=== PATIENT | female | born 1955 | race American Indian/Alaskan Native ===

== ENCOUNTER 2016-08-23 22:07 | Emergency (ER) | payer MEDICARE ==
[2016-08-23 22:25] VITALS: BP 192/80
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
== END 2016-08-24 03:26 | disposition home or self-care (01) ==
LOC: ED 22:07
DX: T23.201A Burn of second degree of right hand, unspecified site, initial encounter (principal); I10 Essential (primary) hypertension; I50.9 Heart failure, unspecified; E11.9 Type 2 diabetes mellitus without complications; F17.200 Nicotine dependence, unspecified, uncomplicated; Z79.82 Long term (current) use of aspirin; Z88.2 Allergy status to sulfonamides; X10.2XXA Contact with fats and cooking oils, initial encounter; Y93.G3 Activity, cooking and baking; Y92.89 Other specified places as the place of occurrence of the external cause; Y99.8 Other external cause status
CPT/HCPCS: 99282

== ENCOUNTER 2017-01-26 09:57 | Emergency (ER) | payer MEDICARE ==
[2017-01-26 10:46] VITALS: BP 146/64
[2017-01-26 11:22] LABS: Basophils % (Auto) 0.6 % (0.0-1.8); Eosinophils % (Auto) 2.4 % (0.0-4.3); Hematocrit 37.8 % (30.3-42.9); Mean Corpuscular HGB Conc 32 % (30-34); Mean Corpuscular Hemoglobin 26 pg (28-32); Mean Corpuscular Volume 82 fl (79-97); Red Blood Count 4.63 M/mm3 (3.65-5.03); Red Cell Distribution Width 17.8 % (13.2-15.2); White Blood Count 7.7 K/mm3 (4.5-11.0)
[2017-01-26 11:36] LABS: Platelet Count 220 K/mm3 (140-440)
--- NOTE | 2017-01-26 14:14 | Emergency Department Report ---
ED General Adult HPI - General Chief complaint: Vaginal Bleeding Stated complaint: VAGINAL BLEEDING Time Seen by Provider: 01/26/17 13:38 Source: patient, RN notes reviewed Mode of arrival: Ambulatory Limitations: No Limitations - History of Present Illness Initial comments: This is a 61-year-old female, she is previously unknown to this provider, has a past medical history of congestive heart failure, diabetes, obesity, arthritis Presents to the ER complaining of painless vaginal bleeding since last night. This is constant. It does not have exacerbating or relieving factors. Patient denies headache, neck pain, chest pain, abdominal pain, shortness of breath, irritative/obstructive urinary symptoms. Denies recent sexual activity, and denies insertion of foreign objects. Patient also complains of chronic atraumatic right-sided hip pain, consistent with prior episodes of arthritis, not especially new, worsening or different. This pain does not radiate anywhere. It increases with palpation, range of motion. -: Gradual Location: right, lower extremity Quality: aching Consistency: intermittent Improves with: rest Worsens with: movement Associated Symptoms: denies: confusion, chest pain, cough, diaphoresis, fever/ chills, headaches, loss of appetite, malaise, nausea/vomiting, rash, shortness of breath, syncope, weakness - Related Data Home Medications Medication Instructions Recorded Confirmed Last Taken Aspirin EC [Aspirin Enteric Coated 81 mg PO QDAY 01/08/13 09/18/13 09/18/13 08: 00 TAB] Atorvastatin [Lipitor] 40 mg PO DAILY 01/08/13 09/18/13 09/17/13 Ergocalciferol [Vitamin D2] 50,000 units PO QWEEK 01/08/13 09/18/13 09/11/13 Insulin Detemir [Levemir Flexpen] 20 unit SQ DAILY 01/08/13 09/18/13 09/16/13 Lisinopril [Zestril TAB] 40 mg PO QDAY 01/08/13 09/18/13 09/18/13 08:00 Metformin HCl [metFORMIN ER] 1,000 mg PO QDAY 01/08/13 09/18/13 09/16/13 Prazosin [Minipress] 5 mg PO BID 01/08/13 09/18/13 09/13/13 Triamter/Hctz 37.5-25 mg 1 tab PO QDAY 01/08/13 09/18/13 09/17/13 [Maxzide-25] Verapamil Sr [Calan SR] 240 mg PO BID 01/08/13 09/18/13 09/17/13 08:00 Clopidogrel [Plavix] 75 mg PO QDAY 01/17/13 09/18/13 09/18/13 08:00 Previous Rx's Medication Instructions Recorded Last Taken Type HYDROcodone/APAP 7.5-325 [[place] 1 each PO Q8HR PRN #12 tablet 08/24/16 Unknown Rx 7.5/325] Mupirocin [Bactroban 2%] 1 applic TP TID #1 tube 08/24/16 Unknown Rx Allergies Allergy/AdvReac Type Severity Reaction Status Date / Time Sulfa (Sulfonamide Allergy Rash Verified 01/26/17 10:46 Antibiotics) ED Review of Systems ROS: Stated complaint: VAGINAL BLEEDING Other details as noted in HPI Constitutional: denies: fever Eyes: denies: vision change ENT: denies: epistaxis Respiratory: denies: cough Cardiovascular: denies: chest pain Gastrointestinal: denies: abdominal pain, hematemesis, melena, hematochezia Genitourinary: other (vaginal bleeding). denies: urgency, dysuria Musculoskeletal: arthralgia, myalgia Skin: denies: lesions Neurological: denies: weakness Psychiatric: denies: anxiety ED Past Medical Hx - Past Medical History Previous Medical History?: Yes Hx Hypertension: Yes Hx Congestive Heart Failure: Yes Hx Diabetes: Yes Hx Asthma: No Hx COPD: No Additional medical history: overweight - Surgical History Additional Surgical History: stents in legs - Social History Smoking Status: Current Every Day Smoker Substance Use Type: None - Medications Home Medications: Home Medications Medication Instructions Recorded Confirmed Last Taken Type Aspirin EC [Aspirin Enteric Coated 81 mg PO QDAY 01/08/13 09/18/13 09/18/13 08: 00 History TAB] Atorvastatin [Lipitor] 40 mg PO DAILY 01/08/13 09/18/13 09/17/13 History Ergocalciferol [Vitamin D2] 50,000 units PO QWEEK 01/08/13 09/18/13 09/11/13 History Insulin Detemir [Levemir Flexpen] 20 unit SQ DAILY 01/08/13 09/18/13 09/16/13 History Lisinopril [Zestril TAB] 40 mg PO QDAY 01/08/13 09/18/13 09/18/13 08:00 History Metformin HCl [metFORMIN ER] 1,000 mg PO QDAY 01/08/13 09/18/13 09/16/13 History Prazosin [Minipress] 5 mg PO BID 01/08/13 09/18/13 09/13/13 History Triamter/Hctz 37.5-25 mg 1 tab PO QDAY 01/08/13 09/18/13 09/17/13 History [Maxzide-25] Verapamil Sr [Calan SR] 240 mg PO BID 01/08/13 09/18/13 09/17/13 08:00 History Clopidogrel [Plavix] 75 mg PO QDAY 01/17/13 09/18/13 09/18/13 08:00 History HYDROcodone/APAP 7.5-325 [[place] 1 each PO Q8HR PRN #12 tablet 08/24/16 Unknown Rx 7.5/325] Mupirocin [Bactroban 2%] 1 applic TP TID #1 tube 08/24/16 Unknown Rx ED Physical Exam - General Limitations: No Limitations General appearance: alert, in no apparent distress, obese - Head Head exam: Present: atraumatic, normocephalic - Eye Eye exam: Present: normal appearance - ENT ENT exam: Present: normal exam, normal orophraynx, mucous membranes moist, normal external ear exam - Neck Neck exam: Present: normal inspection, full ROM. Absent: tenderness, meningismus - Respiratory Respiratory exam: Present: normal lung sounds bilaterally. Absent: respiratory distress, wheezes, rales, rhonchi, stridor, chest wall tenderness, accessory muscle use, decreased breath sounds, prolonged expiratory - Cardiovascular Cardiovascular Exam: Present: regular rate, normal rhythm, normal heart sounds. Absent: bradycardia, tachycardia, irregular rhythm, systolic murmur, diastolic murmur, rubs, gallop - GI/Abdominal GI/Abdominal exam: Present: soft, normal bowel sounds. Absent: distended, tenderness, guarding, rebound, rigid - External exam: Present: normal external exam Speculum exam: Present: normal speculum exam, vaginal bleeding Bi-manual exam: Present: normal bi-manual exam, other (escorted by nursing Yesenia Lopes). Absent: cervical motion tendernes, adnexal tenderness, adnexal mass - Extremities Exam Extremities exam: Present: normal inspection, full ROM, normal capillary refill , pedal edema, other (the compartments are soft, there is lower extremity edema , the pelvis is stable, there is no long bony tenderness, there is no redness, pus, streaking over the right hip, there is full active and passive range of motion in the right hip, patient able to walk without difficulty). Absent: joint swelling, calf tenderness - Back Exam Back exam: Present: normal inspection, full ROM. Absent: CVA tenderness (L), muscle spasm, paraspinal tenderness, vertebral tenderness - Neurological Exam Neurological exam: Present: alert, oriented X3, normal gait, other (Extraocular movements intact. Tongue midline. No facial droop. Facial sensation intact to light touch in the V1, V2, V3 distribution bilaterally. 5 and 5 strength in 4 extremities.. Sensation is intact to light touch in 4 extremities.). Absent : motor sensory deficit - Psychiatric Psychiatric exam: Present: normal affect, normal mood - Skin Skin exam: Present: warm, dry, intact, normal color. Absent: rash ED Course Vital Signs 01/26/17 10:38 Temperature 97.9 F Pulse Rate 80 Respiratory 16 Rate Blood Pressure 146/64 O2 Sat by Pulse 100 Oximetry ED Medical Decision Making - Lab Data Result diagrams: 01/26/17 10:52 Vital Signs 01/26/17 10:38 Temperature 97.9 F Pulse Rate 80 Respiratory 16 Rate Blood Pressure 146/64 O2 Sat by Pulse 100 Oximetry Lab Results 01/26/17 01/26/17 01/26/17 Range/Units 10:52 10:52 14:15 WBC 7.7 (4.5-11.0) K/mm3 RBC 4.63 (3.65-5.03) M/mm3 Hgb 12.0 (10.1-14.3) gm/dl Hct 37.8 (30.3-42.9) % MCV 82 (79-97) fl MCH 26 L (28-32) pg MCHC 32 (30-34) % RDW 17.8 H (13.2-15.2) % Plt Count 220 (140-440) K/mm3 Lymph % (Auto) 42.2 H (13.4-35.0) % Edwards % (Auto) 8.3 H (0.0-7.3) % Eos % (Auto) 2.4 (0.0-4.3) % Baso % (Auto) 0.6 (0.0-1.8) % Lymph # 3.3 (1.2-5.4) K/mm3 Edwards # 0.6 (0.0-0.8) K/mm3 Eos # 0.2 (0.0-0.4) K/mm3 Baso # 0.0 (0.0-0.1) K/mm3 Seg Neutrophils % 46.5 (40.0-70.0) % Seg Neutrophils # 3.6 (1.8-7.7) K/mm3 Urine Bilirubin Neg (Negative) U Epithel Cells (Auto) 1.0 (0-13.0) /HPF Blood Type A POSITIVE Antibody Screen TNR [place] Antibody Screen Negative - Medical Decision Making Differential diagnosis: Medication side effect, uterine cancer/tumor/malignancy Assessment and plan: 61-year-old female with postmenopausal bleeding. She is afebrile, with reassuring vital signs, and has no irritative or obstructive urinary symptoms. Having no pain at this time, also has incidental right-sided hip arthritis. I did offer the patient an ultrasounds to initiate and expedite her workup, but she declined, and prefers to follow-up with her outpatient primary care doctor. Patient understands that she needs to follow up as an outpatient to exclude uterine cancer and malignancy. Slightly hypertensive, asymptomatic, she will be discharged at this time with references to local specialist. Critical care attestation.: If time is entered above; I have spent that time in minutes in the direct care of this critically ill patient, excluding procedure time. ED Disposition Clinical Impression: Vaginal bleeding Disposition: DC-01 TO HOME OR SELFCARE Is pt being admited?: No Does the pt Need Aspirin: No Condition: Stable Instructions: Bleeding (ED) Additional Instructions: Continue current outpatient medications. Follow up with an outpatient primary care doctor or environmental conservation professor within the next 2 weeks. It is very important to follow-up as directed, to exclude tumor/cancer/malignancy. Return to the ER right away with chest pain, shortness of breath, intractable nausea or vomiting , confusion, inability to tolerate liquid feeds, bleeding more than 2 pads per hour, lightheadedness, loss of consciousness. Referrals: PRIMARY CAREMD [Primary Care Provider] - 3-5 Days [facility] [Provider Group] - 3-5 Days [facility] [Provider Group] - 3-5 Days [facility] [Provider Group] - 3-5 Days
[2017-01-26] MEDS ORDERED: MOTRIN PO ONE (14:18)
[2017-01-26 14:44] LABS: Bacteria,Urine 1+ /HPF (Negative); Bilirubin,Urine NEG (Negative); Blood,Urine LG (Negative); Ketones,Urine NEG (Negative); Leukocyte Esterase,Urine TR (Negative); Mucus,Urine FEW /HPF; Nitrite,Urine NEG (Negative); Protein,Urine <15 mg/dL mg/dL (Negative); Urobilinogen,Urine < 2.0 mg/dL (<2.0)
[2017-01-26 14:47] LABS: RBC,Urine < 1.0 /HPF (0.0-6.0)
== END 2017-01-26 15:11 | disposition home or self-care (01) ==
LOC: ED 09:57
DX: N93.9 Abnormal uterine and vaginal bleeding, unspecified (principal); I10 Essential (primary) hypertension; I50.9 Heart failure, unspecified; E11.9 Type 2 diabetes mellitus without complications; F17.200 Nicotine dependence, unspecified, uncomplicated; Z79.82 Long term (current) use of aspirin; Z88.2 Allergy status to sulfonamides
CPT/HCPCS: 36415; 81001; 85025; 86850; 86900; 86901